=== PATIENT | male | born 1940 | race Caucasian/White ===

== ENCOUNTER 2023-12-26 16:38 | Emergency (ER) | payer MEDICARE, OTHER ==
[2023-12-26 17:48] LABS: HEMATOCRIT 45.8 % (42.0-52.0); HEMOGLOBIN 15.2 gm/dl (14.0-18.0); MEAN CORPUSCULAR HEMOGLOBIN 32.3 pg (28.0-32.0); MEAN CORPUSCULAR HGB CONC 33.2 g/dl (32.0-36.0); MEAN CORPUSCULAR VOLUME 97.2 fl (83.0-99.0); MEAN PLATELET VOLUME 11.5 fl (9.4-12.4); PLATELET COUNT,PLT 135 K/mm3 (150-400); RED BLOOD CELL COUNT 4.71 M/mm3 (4.52-5.90); WHITE BLOOD CELL COUNT,WBC 12.15 K/mm3 (3.9-11.3)
[2023-12-26 18:01] LABS: INR 1.09; PROTHROMBIN TIME 11.5 SECONDS (9.7-12.0)
[2023-12-26 18:09] LABS: LACTIC ACID 1.1 mmol/L (0.4-2.0)
[2023-12-26 18:17] LABS: A/G RATIO 0.9 (1-2); ALBUMIN 3.3 g/dl (3.4-5.0); ANION GAP 12.9 (5-15); BUN/CREATININE RATIO 19.5 (14-18); C-REACTIVE PROTEIN 6.18 mg/dL (<0.30); CALCIUM 8.9 mg/dL (8.5-10.1); CREATININE 1.9 mg/dL (0.7-1.3); EST CRCL DRUG DOSING (CG) 30.95 mL/min; POTASSIUM,K 3.9 mEq/L (3.5-5.1)
[2023-12-26 18:29] LABS: BAND PERCENT MAN 0 % (0-10); BASOPHILS PERCENT MAN 1 (0.2-1.2); EOSINOPHILS PERCENT MAN 1 % (0.8-7.0); LYMPHOCYTES % ATYPICAL MANUAL 0 %; LYMPHOCYTES PERCENT MAN 11 % (20-40); MONOCYTES PERCENT MAN 16 % (2-10)
[2023-12-26 18:30] LABS: PLATELET COUNT ESTIMATE DECREASED; TSH 2.115 uIU/mL (0.358-3.74)
[2023-12-26 18:37] LABS: APPEARANCE,URINE CLEAR (Clear); BILIRUBIN,URINE 1+ (Negative); COLOR,URINE YELLOW (Yellow); GLUCOSE,URINE NEGATIVE (Negative); KETONES,URINE NEGATIVE (Negative); LEUKOCYTE ESTERASE,URINE 1+ (Negative); NITRITE,URINE NEGATIVE (Negative); OCCULT BLOOD,URINE NEGATIVE (Negative); PH,URINE 5.5 (5.0-8.0); PROTEIN,URINE 1+ (Negative); UROBILINOGEN,URINE 0.2 (0.2-1.0)
[2023-12-26] MEDS: Sodium Chloride 0.9% 10 ML Syringe FLUSH PRN (18:44)
[2023-12-26] MEDS: Sodium Chloride 0.9% 1,000 ML IV ONE (18:44)
[2023-12-26 18:46] LABS: BARBITURATE SCREEN,URINE NEGATIVE (CUTOFF=200); BENZODIAZEPINES SCREEN,URINE NEGATIVE (CUTOFF=150); BUPRENORPHINE SCREEN,URINE NEGATIVE (CUTOFF=10); METHADONE SCREEN, URINE NEGATIVE (CUT0FF=200); METHAMPHETAMINES SCREEN, URINE NEGATIVE (CUTOFF=500); OXYCODONE SCREEN,URINE NEGATIVE (CUT0FF=100); THC SCREEN,URINE 20 NG/ML NEGATIVE (CUTOFF=50)
[2023-12-26 19:05] LABS: AMPHETAMINES SCREEN, URINE NEGATIVE (CUTOFF=500)
[2023-12-26 19:10] LABS: BACTERIA,URINE FEW /hpf (FEW); HYALINE CASTS,URINE 0-5 /lpf (0-5); MUCUS,URINE FEW /hpf (FEW); RBC,URINE 0-5 /hpf (0-5); SQUAMOUS EPITHELIAL CELLS,UR 0-5 /hpf (0-5)
[2023-12-26 19:19] LABS: CORONAVIRUS COVID-19 NAA NEGATIVE (NEGATIVE); INFLUENZA A NAA NEGATIVE (NEGATIVE); RESPIRATORY SYNCYTIAL VIR NAA NEGATIVE (NEGATIVE)
[2023-12-26] MEDS: cefTRIAXone 1 GM in Sodium Chloride 0.9% 100 ML IV ONE (20:50)
== END 2023-12-26 23:07 | disposition home or self-care (01) ==
LOC: JD.ED 16:38
DX: R41.0 Disorientation, unspecified (principal); I10 Essential (primary) hypertension; E78.00 Pure hypercholesterolemia, unspecified; K21.9 Gastro-esophageal reflux disease without esophagitis; E11.9 Type 2 diabetes mellitus without complications; Z87.891 Personal history of nicotine dependence; Z86.16 Personal history of COVID-19; Z79.899 Other long term (current) drug therapy; Z79.84 Long term (current) use of oral hypoglycemic drugs; I70.0 Atherosclerosis of aorta; I51.7 Cardiomegaly
CPT/HCPCS: 0241U; 36415; 70450; 71045; 80053; 80143; 80179; 80306; 80307; 81001; 83605; 84443; 85007; 85027; 85610; 86140; 87040; 87086; 93005; 96361; 96365; 99285; J0696; J3490; J7030